=== PATIENT | female | born 1970 | race Caucasian/White ===

== ENCOUNTER 2020-01-08 18:46 | Inpatient (IN) | payer OTHER ==
[~2020-01-08] VITALS: Ht 154.9 cm; Wt 54.4 kg
[2020-01-08 18:50] VITALS: BP 140/82
[2020-01-08] MEDS ORDERED: SYNTHROID75 MCG PO (19:06)
[2020-01-08] MEDS ORDERED: AUGMENTIN 875-1 EACH PO (19:06)
[2020-01-08 19:23] LABS: URINE BILIRUBIN NEGATIVE (Negative); URINE BLOOD NEGATIVE (Negative); URINE CLARITY CLEAR; URINE COLOR YELLOW; URINE GLUCOSE-RANDOM NEGATIVE (Negative); URINE KETONES NEGATIVE (Negative); URINE LEUKOCYTES-REFLEX NEGATIVE (Negative); URINE NITRITE-REFLEX NEGATIVE (Negative); URINE PROTEIN NEGATIVE (Negative); URINE UROBILINOGEN 0.2 E.U./dl (0.2-1.0)
[2020-01-08 19:24] LABS: INFLUENZA A ANTIGEN Negative (Negative); INFLUENZA B ANTIGEN Negative (Negative)
[2020-01-08 20:31] LABS: ABSOLUTE EOSINOPHILS 0.1 thou/uL (0.0-0.7); ABSOLUTE LYMPHOCYTES 1.3 thou/uL (0.8-5.3); ABSOLUTE MONOCYTES 0.5 thou/uL (0.0-1.2); ABSOLUTE NEUTROPHILS 3.8 thou/uL (1.6-8.1); BASOPHILS 0.2 %; EOSINOPHILS 1.3 %; HEMATOCRIT 39.6 % (37.0-47.0); HEMOGLOBIN 13.6 gm/dL (12.0-15.0); LYMPHOCYTES 22.8 %; MCHC 34.3 g/dL (28.0-37.0); MCV 90.2 fL (80.0-100.0); MONOCYTES 9.2 %; MPV 6.7 fl. (7.2-11.1); NUCLEATED RBCS 0 /100WBC; PLATELET COUNT* 393 thou/uL (150-400); POLYS 66.5 %; RBC 4.39 mil/uL (4.20-5.00); RDW-CV 13.7 % (10.5-14.5); WBC 5.7 thou/uL (4.0-11.0)
[2020-01-08 20:36] LABS: CALCIUM 7.9 mg/dL (8.5-10.1); CREATININE 0.7 mg/dL (0.6-1.3); POTASSIUM 3.8 mmol/L (3.5-5.1)
[2020-01-08 20:46] LABS: ALBUMIN 2.9 g/dL (3.4-5.0); TOTAL BILIRUBIN 0.3 mg/dL (<0.1-1.0); TOTAL PROTEIN 6.7 g/dL (6.4-8.2)
[2020-01-08 22:59] VITALS: BP 125/70
[2020-01-08 23:37] VITALS: BP 118/74
--- NOTE | 2020-01-09 03:32 | NUR ---
ASSUMED CARE AT 2330 FROM THE ER. PT IS ALERT AND ORIENTED. VSS. PERRLA. PT REPORTS SOME SOA WITH AMBULATION. PT IS ON 2 LITERS O2. PT IS IN SINUS RYTHM ON THE TELEMETRY. PT IS RESTING COMFORTABLY IN BED. RESPIRATIONS ARE EVEN AND NONLABORED. WILL CONTINUE TO MONITOR PT.
[2020-01-09 08:00] VITALS: BP 102/81
[2020-01-09 12:00] VITALS: BP 104/77
--- NOTE | 2020-01-09 14:32 | NUR ---
PT TRANSFERRED TO NEGATIVE PRESSURE UNIT WITHOUT ISSUE. VSS ON 2L NC. PT HAS REMAINED AFEBRILE. PT HAS HAD COMPLAINTS OF HEADACHE, REPORTED INCIDENCE OF DIZZINESS FEELING FAINT. NO COUGH. PT HAS ALSO REPORTED DIARRHEA. PT TOLD TO CALL FOR ASSISTANCE TO BATHROOM. [id number]
--- NOTE | 2020-01-09 15:40 | NUR ---
CM spoke with Pt's . Pt is A&O. Independent, works. No DME. No hx HH or SNF. Covid pending. Following.
[2020-01-09 16:00] VITALS: BP 101/61
[2020-01-09 21:50] VITALS: BP 107/73
[2020-01-10] VITALS: BP 91/57
[2020-01-10 04:00] VITALS: BP 93/54
[2020-01-10 05:13] LABS: HEMATOCRIT 36.9 % (37.0-47.0); HEMOGLOBIN 12.4 gm/dL (12.0-15.0); MCH 30.6 pg (26.0-34.0); MCHC 33.5 g/dL (28.0-37.0); MCV 91.4 fL (80.0-100.0); MPV 6.7 fl. (7.2-11.1); RBC 4.04 mil/uL (4.20-5.00); RDW-CV 13.5 % (10.5-14.5); WBC 4.4 thou/uL (4.0-11.0)
[2020-01-10 05:41] LABS: ALBUMIN 2.4 g/dL (3.4-5.0); CALCIUM 8.2 mg/dL (8.5-10.1); CREATININE 0.6 mg/dL (0.6-1.3); POTASSIUM 3.8 mmol/L (3.5-5.1); TOTAL BILIRUBIN 0.3 mg/dL (<0.1-1.0); TOTAL PROTEIN 5.8 g/dL (6.4-8.2)
--- NOTE | 2020-01-10 05:52 | NUR ---
PT A&O X4. O2 SAT 96% ON 2L. AFEBRILE. TYLENOL GIVEN FOR HEADACHE. DENIED DIARRHEA THIS SHIFT. MEDS GIVEN ORDERED. WILL CONTINUE TO MONITOR.
[2020-01-10 08:19] VITALS: BP 110/74
[2020-01-10 12:28] VITALS: BP 105/75
--- NOTE | 2020-01-10 17:27 | NUR ---
PT REMAINED ALERT AND ORIENTED. PT RESTING IN BED. PT UNHAPPY WITH BEING HERE, PT WANTS TO GO HOME. PT WEANED OFF O2. PT REFUSED FLUIDS RUNNING, STOPPED FLUIDS, PT WANTS IV OUT, EDUCATED PT ON KEEPING IV FOR EMERGENCIES. PT CALLED AND STATED HIS WANTS TO SHOWER, BROUGHT DOWN ITEMS FOR PATIENT TO SHOWER, PT REFUSED STATED SHE WANT TO SHOWER BUT AT HOME. PT APPEARS VERRY UNHAPPY AND TEARFUL. PT REQUIRES CONTINUAL EDUCATION ON DISCHARGE AND PLAN OF CARE. PT THIS MORNING WAS UNAWARE SHE WAS POSIVITE FOR COVID-19 AND WAS UNHAPPY ABOUT FAMILY KNOWING BEFORE HER. TALKED WITH PATIENT AND CALMED HER DOWN, DOCTOR SPOKE WITH PATIENT. FALL RISK PRECAUTIONS IN PLACE. HOURLY ROUNDING COMPLETED. WILL CONTINUE TO MONITOR.
[2020-01-10 18:09] VITALS: BP 121/81
[2020-01-10 20:30] VITALS: BP 111/67
[2020-01-11] VITALS: BP 110/64
[2020-01-11 04:00] VITALS: BP 119/76
[2020-01-11 05:27] LABS: HEMATOCRIT 34.8 % (37.0-47.0); MCH 31.1 pg (26.0-34.0); MCHC 34.4 g/dL (28.0-37.0); MCV 90.4 fL (80.0-100.0); MPV 6.6 fl. (7.2-11.1); RBC 3.85 mil/uL (4.20-5.00); RDW-CV 13.4 % (10.5-14.5); WBC 5.4 thou/uL (4.0-11.0)
[2020-01-11 05:50] LABS: ALBUMIN 2.3 g/dL (3.4-5.0); CALCIUM 7.7 mg/dL (8.5-10.1); CREATININE 0.6 mg/dL (0.6-1.3); POTASSIUM 3.8 mmol/L (3.5-5.1); TOTAL BILIRUBIN 0.2 mg/dL (<0.1-1.0); TOTAL PROTEIN 5.6 g/dL (6.4-8.2)
--- NOTE | 2020-01-11 08:04 | NUR ---
PATIENT SLEPT WELL THROUGHOUT MOST OF THE NIGHT. VSS ON RA. MEDICATIONS GIVEN ORDERED AND CHARTED. PATIENT UP AD-FRANCISCO. ASSESSMENT CHARTED. IV IN LEFT FOREARM-SL. PATIENT INSTRUCTED TO USE CALL LIGHT WHEN NEEDING ASSISTANCE. HOURLY ROUNDS MADE. WILL CONTINUE WITH PLAN OF CARE AND NURSING TO MONITOR.
[2020-01-11 10:35] VITALS: BP 119/76
[2020-01-11] MEDS ORDERED: AZITHROMYCIN500 MG PO (10:49)
[2020-01-11] MEDS ORDERED: PLAQUENIL200 MG PO (10:50)
[2020-01-11] MEDS ORDERED: DIFLUCAN150 M1 PO (12:21)
[2020-01-11 12:22] VITALS: BP 119/76
--- NOTE | 2020-01-11 13:08 | NUR ---
PT GIVEN DISCHARGE INFORMATION, CARE NOTES, AND PRESCRIPTIONS. IV REMOVED AND TELE MONITOR OFF. PT LEFT AMBULATORY WITH MASK ON AND NURSING STAFF TO HOME TO SELF QUARANTINE. FALL RISK PRECAUTIONS IN PLACE. HOURLY ROUNDING COMPLETED.
== END 2020-01-11 13:10 | disposition home or self-care (01) | DRG 177 ==
LOC: M.ERS 18:46 → M.TBA-ER 22:14 → M.2W 22:14 → M.ORTHSURG 22:14 → M.2W 22:49 → M.ORTHSURG 01-09 14:27
PROVIDERS: Family Medicine; Internal Medicine; Physician Assistant; ADMIT Internal Medicine
DX: U07.1 COVID-19 (principal); J12.89 Other viral pneumonia; J96.01 Acute respiratory failure with hypoxia; E03.9 Hypothyroidism, unspecified; Z98.891 History of uterine scar from previous surgery; Z79.899 Other long term (current) drug therapy